=== PATIENT | female | born 1930 | race Caucasian/White ===

== ENCOUNTER 2016-10-27 15:10 | Emergency (ER) | payer MEDICARE, OTHER ==
[~2016-10-27] VITALS: Ht 149.9 cm; Wt 61.7 kg
[~2016-10-27 15:10] MED LIST: AMLODIPINE BES2.5 M1 PO; ATENOLOL25 MG PO; ATENOLOL50 MG PO; CAR30 PO; FOLIC ACID1 MG PO; GEMFIBROZIL600 MG PO; KLOR-CON M2020 MEQ PO; LAC PO; LASIX20 MG PO; LEVAQUIN750 MG PO; LEVEMIR100 U/M1 SQ; LISINOPRIL2.5 MG PO; PHOSLO667 MG PO
[2016-10-27 20:23] VITALS: BP 134/74
== END 2016-10-27 20:23 | disposition home or self-care (01) ==
LOC: ED 15:10
DX: S01.01XA Laceration without foreign body of scalp, initial encounter (principal); X58.XXXA Exposure to other specified factors, initial encounter; Y93.89 Activity, other specified; Y99.8 Other external cause status; Y92.89 Other specified places as the place of occurrence of the external cause

== ENCOUNTER 2020-05-07 16:49 | Emergency (ER) | payer MEDICARE, OTHER ==
[~2020-05-07] VITALS: Ht 154.9 cm; Wt 52.2 kg
[~2020-05-07 16:49] MED LIST changes: +ALD25 PO; +ATORVASTATIN CA10 M1 PO; +ELIQUIS2.5 MG PO; +GRALISE600 MG PO; +INSULIN SYRING1 EA29 SQ; +KEFLEX500 M1 PO; +LOPRESSOR50 M1 PO; +METHENAMINE MC; +ZYLOPRIM100 MG PO
[2020-05-07 17:22] VITALS: Ht 154.9 cm; Wt 52.2 kg
[2020-05-07 18:29] LABS: BASOPHIL % 0.7 % (0.2-1.3); PLATELET COUNT 178 x10^3mcL (179-408); RED CELL DISTRIBUTION WIDTH 13.9 % (12.3-17.7)
[2020-05-07 18:30] LABS: rbc morphology (normal/abnorm) NORMAL (NORMAL)
[2020-05-07 18:52] LABS: CALCIUM 8.4 mg/dL (8.5-10.1); CARBON DIOXIDE 26.1 mmol/L (21-32); CHLORIDE SERUM 107 mmol/L (98-107); CREATININE SERUM 1.2 mg/dL (0.6-1.0); GLUCOSE SERUM 241 mg/dL (74-106); POTASSIUM SERUM 4.1 mmol/L (3.5-5.1); SODIUM SERUM 138 mmol/L (136-145)
[2020-05-07 18:54] LABS: ALBUMIN 2.9 g/dL (3.4-5.0); ALKALINE PHOSPHATASE 155 U/L (46-116); ALT/SGPT 34 U/L (14-59); AST/SGOT 25 U/L (15-37); BILIRUBIN TOTAL 0.5 mg/dL (0.20-1.00); TOTAL PROTEIN, SERUM 6.3 g/dL (6.4-8.2)
[2020-05-07 20:31] LABS: UA SPECIFIC GRAVITY 1.015 (1.005-1.035); microscopic required? YES; urine erythrocyte TRACE (NEGATIVE)
[2020-05-08 00:18] VITALS: BP 158/73
== END 2020-05-08 00:18 | disposition home or self-care (01) ==
LOC: ED 16:49
PROVIDERS: Emergency Medicine
DX: N39.0 Urinary tract infection, site not specified (principal); E11.22 Type 2 diabetes mellitus with diabetic chronic kidney disease; I12.9 Hypertensive chronic kidney disease with stage 1 through stage 4 chronic kidney disease, or unspecified chronic kidney disease; N18.9 Chronic kidney disease, unspecified; I48.91 Unspecified atrial fibrillation; D64.9 Anemia, unspecified; E11.40 Type 2 diabetes mellitus with diabetic neuropathy, unspecified; Z88.2 Allergy status to sulfonamides; Z98.890 Other specified postprocedural states; Z20.828 Contact with and (suspected) exposure to other viral communicable diseases; Z85.3 Personal history of malignant neoplasm of breast
CPT/HCPCS: J0696; J7030; U0003